=== PATIENT | male | born 1955 | race African-American/Black ===

== ENCOUNTER 2018-03-30 10:02 | Inpatient (IN) | payer OTHER ==
[~2018-03-30] VITALS: Ht 172.7 cm; Wt 58.1 kg
[2018-03-30] MEDS ORDERED: SODIUM CHLORIDE 0.9% 1000ML BAG (SEPSIS BOLUS) IV ONE (11:15)
[2018-03-30] MEDS ORDERED: LEVOFLOXACIN 750MG PREMIX 150 ML IV ONE (11:15)
[2018-03-30 12:07] LABS: HEMATOCRIT. 36.8 % (42.0-52.0); HEMOGLOBIN. 12.1 g/dL (14.0-18.0); MEAN CORPUSCULAR HEMOGLOBIN 23.6 pg (28.0-32.0); MEAN PLATELET VOLUME 9.8 fl (7.4-10.4); PLATELET 201 x1000/uL (130-400); RED BLOOD CELL COUNT 5.11 mill/uL (4.7-6.1); RED CELL DISTRIBUTION WIDTH 14.1 % (11.6-14.6)
[2018-03-30 12:13] LABS: CHLORIDE 100 mEq/L (98-107)
[2018-03-30 12:18] LABS: INR 0.9; PROTHROMBIN TIME 9.5 sec (9.1-11.1)
[2018-03-30 13:19] LABS: PLATELET ESTIMATE NORMAL
[2018-03-30] MEDS ORDERED: SODIUM CHLORIDE 0.9% 1,000 ML IV SCH (13:39)
[2018-03-30] MEDS ORDERED: ZOLPIDEM TARTRATE 5MG TABLET PO PRN (13:45)
[2018-03-30] MEDS ORDERED: GUAIFENESIN 200MG/10ML SUGAR FREE UDC PO PRN (13:45)
[2018-03-30] MEDS ORDERED: ACETAMINOPHEN 325MG TABLET PO PRN (13:45)
[2018-03-30] MEDS ORDERED: NITROGLYCERIN 0.4MG TABLET SL SL PRN (13:45)
[2018-03-30] MEDS ORDERED: KETOROLAC 15MG/ML VIAL IV PRN (13:45)
[2018-03-30] MEDS ORDERED: DOCUSATE SODIUM 100MG CAPSULE PO PRN (13:45)
[2018-03-30] MEDS ORDERED: IPRATROPIUM/ALBUTEROL 0.5-3(2.5)MG/3ML NEB INH PRN (13:45)
[2018-03-30] MEDS ORDERED: ONDANSETRON HCL 4MG/2ML INJ IV PRN (13:45)
[2018-03-30] MEDS ORDERED: CLONIDINE 0.1MG TABLET PO PRN (13:45)
[2018-03-30] MEDS ORDERED: MAGNESIUM/ALUMINUM HYDROXIDE/SIMETHICONE 30ML UDC PO PRN (13:45)
[2018-03-30 13:46] LABS: CLARITY URINE CLOUDY (CLEAR); COLOR URINE YELLOW (YELLOW); KETONES URINE NEGATIVE (NEGATIVE); LEUKOCYTE ESTERASE URINE TRACE (NEGATIVE); NITRITE URINE NEGATIVE (NEGATIVE); OCCULT BLOOD URINE NEGATIVE (NEGATIVE); PROTEIN URINE 1+ (NEGATIVE); SPECIFIC GRAVITY URINE 1.012 (1.005-1.030); UROBILINOGEN URINE 0.2 E.U./dL (0.2-1.0)
[2018-03-30 15:47] LABS: ETHANOL BLOOD < 10 mg/dL
[2018-03-30 15:49] LABS: LDL CHOLESTEROL 92 mg/dL (5-100)
[2018-03-30 15:50] LABS: TOTAL IRON BINDING CAPACITY 141 ug/dL (250-450)
[2018-03-30 15:51] LABS: HDL CHOLESTEROL 15 mg/dL (40-59)
[2018-03-30] MEDS ORDERED: ENOXAPARIN 40MG/0.4ML SYR SUBCUT SCH (17:00)
[2018-03-30 17:25] VITALS: BP 151/79
[2018-03-30 17:43] VITALS: BP 151/79
[2018-03-30] MEDS ORDERED: TAMS0.4C31 MT (17:47)
[2018-03-30] MEDS ORDERED: CEPH500C2 MT (17:47)
[2018-03-30] MEDS ORDERED: TAMSULOSIN HCL 0.4MG SR CAPSULE PO NR (19:45)
[2018-03-30 20:00] VITALS: BP 155/77
[2018-03-30] MEDS: DUTASTERIDE 0.5MG CAPSULE PO SCH (20:38)
[2018-03-30] MEDS: FAMOTIDINE 20MG TABLET PO SCH (20:38)
[2018-03-30] MEDS: SODIUM CHLORIDE 0.9% 1,000 ML IV SCH (20:39)
[2018-03-30] MEDS: ENOXAPARIN 40MG/0.4ML SYR SUBCUT SCH (20:39)
[2018-03-30 21:14] LABS: CREATINE KINASE 63 IU/L (39-308)
[2018-03-30 21:15] LABS: CREATINE KINASE MB FRACTION < 1.0 ng/mL (0.5-3.6)
[2018-03-31] VITALS: BP 125/72
[2018-03-31 04:00] VITALS: BP 132/70
[2018-03-31 08:00] VITALS: BP 140/74
[2018-03-31] MEDS: CEFTRIAXONE 1 G PREMIX 50 ML IV SCH (09:18)
[2018-03-31] MEDS: DUTASTERIDE 0.5MG CAPSULE PO SCH (09:18)
[2018-03-31] MEDS: TAMSULOSIN HCL 0.4MG SR CAPSULE PO SCH ×2 (09:19→18:33)
[2018-03-31] MEDS: ASPIRIN 325MG EC TABLET PO SCH (09:19)
[2018-03-31] MEDS: FAMOTIDINE 20MG TABLET PO SCH (09:19)
[2018-03-31] MEDS: SODIUM CHLORIDE 0.9% 1,000 ML IV SCH (09:29)
[2018-03-31 09:55] LABS: CREATINE KINASE 46 IU/L (39-308)
[2018-03-31 09:56] LABS: CREATINE KINASE MB FRACTION < 1.0 ng/mL (0.5-3.6)
[2018-03-31 12:00] VITALS: BP 130/79
[2018-03-31] MEDS ORDERED: LEVOFLOXACIN 250MG PREMIX 50 ML IV SCH (12:00)
[2018-03-31 16:00] VITALS: BP 130/79
[2018-03-31 20:00] VITALS: BP 150/77
[2018-03-31 20:26] LABS: HEMATOCRIT. 33.9 % (42.0-52.0); HEMOGLOBIN. 11.1 g/dL (14.0-18.0); MEAN CORPUSCULAR HEMOGLOBIN 23.6 pg (28.0-32.0); MEAN CORPUSCULAR VOLUME 72.2 fL (80.0-94.0); MEAN PLATELET VOLUME 10.4 fl (7.4-10.4); PLATELET 209 x1000/uL (130-400); RED BLOOD CELL COUNT 4.69 mill/uL (4.7-6.1); RED CELL DISTRIBUTION WIDTH 13.8 % (11.6-14.6)
[2018-03-31 20:49] LABS: CHLORIDE 112 mEq/L (98-107)
[2018-03-31] MEDS: ENOXAPARIN 40MG/0.4ML SYR SUBCUT SCH (21:10)
[2018-03-31 21:31] LABS: PLATELET ESTIMATE NORMAL
[2018-04-01] VITALS: BP 150/75
[2018-04-01] MEDS: SODIUM CHLORIDE 0.9% 1,000 ML IV SCH ×2 (00:10→13:05)
[2018-04-01 04:00] VITALS: BP 142/73
[2018-04-01 08:00] VITALS: BP 147/71
[2018-04-01] MEDS: DUTASTERIDE 0.5MG CAPSULE PO SCH (09:25)
[2018-04-01] MEDS: FAMOTIDINE 20MG TABLET PO SCH (09:25)
[2018-04-01] MEDS: CEFTRIAXONE 1 G PREMIX 50 ML IV SCH (09:25)
[2018-04-01] MEDS: ASPIRIN 325MG EC TABLET PO SCH (09:25)
[2018-04-01] MEDS: TAMSULOSIN HCL 0.4MG SR CAPSULE PO SCH ×2 (09:26→17:18)
[2018-04-01 12:00] VITALS: BP 149/65
[2018-04-01] MEDS ORDERED: LEVOFLOXACIN 250MG PREMIX 50 ML IV SCH (14:00)
[2018-04-01 16:00] VITALS: BP 161/70
[2018-04-01 17:56] LABS: CHLORIDE 114 mEq/L (98-107)
[2018-04-01 20:00] VITALS: BP 137/68
[2018-04-01] MEDS: ENOXAPARIN 40MG/0.4ML SYR SUBCUT SCH (20:05)
[2018-04-02] VITALS: BP 145/67
[2018-04-02] MEDS: SODIUM CHLORIDE 0.9% 1,000 ML IV SCH (00:42)
[2018-04-02 04:00] VITALS: BP 109/56
[2018-04-02 08:00] VITALS: BP 129/62
[2018-04-02] MEDS ORDERED: CEFTRIAXONE 1 G PREMIX 50 ML IV SCH (09:00)
[2018-04-02] MEDS: TAMSULOSIN HCL 0.4MG SR CAPSULE PO SCH (09:26)
[2018-04-02] MEDS: DUTASTERIDE 0.5MG CAPSULE PO SCH (09:26)
[2018-04-02] MEDS: FAMOTIDINE 20MG TABLET PO SCH (09:27)
[2018-04-02] MEDS: ASPIRIN 325MG EC TABLET PO SCH (09:27)
[2018-04-02 12:00] VITALS: BP 132/72
[2018-04-02 13:40] VITALS: BP 132/72
[2018-04-02 23:07] LABS: FOLIC ACID (FOLATE) SERUM 19.2 ng/mL (>5.38)
== END 2018-04-02 15:35 | disposition home or self-care (01) | DRG 871 ==
LOC: ER 10:14 → 7WST 13:31 → EDBEDREQSVC 13:33 → EDBEDREQTM 13:33 → EDBEDREQ 13:33 → ENRESERV 15:53
PROVIDERS: ADMIT Internal Medicine; ATTEND Internal Medicine
DX: A41.50 Gram-negative sepsis, unspecified (principal); N17.0 Acute kidney failure with tubular necrosis; E44.1 Mild protein-calorie malnutrition; E87.0 Hyperosmolality and hypernatremia; N39.0 Urinary tract infection, site not specified; Z68.1 Body mass index [BMI] 19.9 or less, adult; D64.9 Anemia, unspecified; E78.00 Pure hypercholesterolemia, unspecified; F17.210 Nicotine dependence, cigarettes, uncomplicated; I10 Essential (primary) hypertension; J44.9 Chronic obstructive pulmonary disease, unspecified; N40.0 Benign prostatic hyperplasia without lower urinary tract symptoms; Z87.440 Personal history of urinary (tract) infections
CPT/HCPCS: 36415; 71045; 80048; 80061; 82550; 82553; 82607; 82746; 83036; 83540; 83550; 83605; 84145; 84484; 87077; 87186; 93005; 93970; 96365; 96366; 99285; G0482; J0696; J1650; J1956; J7030

== ENCOUNTER 2018-07-23 13:42 | Emergency (ER) | payer OTHER ==
[~2018-07-23] VITALS: Ht 175.3 cm; Wt 74.0 kg
[~2018-07-23 13:42] MED LIST: CEPH500C2 MT; TAMS0.4C31 MT
[2018-07-23] MEDS ORDERED: SODIUM CHLORIDE 0.9% 1,000 ML IV ONE (15:11)
[2018-07-23] MEDS ORDERED: ONDANSETRON HCL 4MG/2ML INJ IV STA (15:11)
[2018-07-23 15:26] LABS: EOSINOPHILS % 0.3 % (0.0-5.0); HEMATOCRIT. 36.1 % (42.0-52.0); HEMOGLOBIN. 11.8 g/dL (14.0-18.0); LYMPHOCYTES % 21.8 % (20.0-50.0); MEAN CORPUSCULAR HEMOGLOBIN 23.1 pg (28.0-32.0); MEAN CORPUSCULAR VOLUME 70.7 fL (80.0-94.0); MEAN PLATELET VOLUME 9.4 fl (7.4-10.4); MONOCYTES % 7.5 % (2.0-8.0); NEUTROPHILS % 69.4 % (40.0-76.0); PLATELET 185 x1000/uL (130-400); RED BLOOD CELL COUNT 5.11 mill/uL (4.7-6.1); RED CELL DISTRIBUTION WIDTH 18.3 % (11.6-14.6)
[2018-07-23 15:31] LABS: CHLORIDE 92 mEq/L (98-107)
[2018-07-23 17:14] LABS: CLARITY URINE CLEAR (CLEAR); COLOR URINE YELLOW (YELLOW); KETONES URINE 1+ (NEGATIVE); LEUKOCYTE ESTERASE URINE NEGATIVE (NEGATIVE); NITRITE URINE NEGATIVE (NEGATIVE); OCCULT BLOOD URINE NEGATIVE (NEGATIVE); PH URINE 5.5 (4.5-8.0); PROTEIN URINE TRACE (NEGATIVE); SPECIFIC GRAVITY URINE 1.019 (1.005-1.030)
[2018-07-23 18:09] VITALS: BP 162/85
== END 2018-07-23 18:11 | disposition home or self-care (01) ==
LOC: ER 13:42
DX: R42 Dizziness and giddiness (principal); E86.0 Dehydration; R55 Syncope and collapse; I10 Essential (primary) hypertension; F17.200 Nicotine dependence, unspecified, uncomplicated
CPT/HCPCS: 36415; 71045; 80053; 81003; 83690; 85025; 93005; 96361; 96374; 99284; J2405; J7030

== ENCOUNTER 2018-10-28 19:21 | Inpatient (IN) | payer OTHER ==
[~2018-10-28] VITALS: Ht 172.7 cm; Wt 61.7 kg
[2018-10-28] MEDS ORDERED: SODIUM CHLORIDE 0.9% 1,000 ML IV ONE (21:04)
[2018-10-28] MEDS ORDERED: ONDANSETRON HCL 4MG/2ML INJ IV STA (21:04)
[2018-10-28 21:25] LABS: BASOPHILS % 1.3 % (0.0-2.0); EOSINOPHILS % 0.2 % (0.0-5.0); HEMATOCRIT. 32.7 % (42.0-52.0); HEMOGLOBIN. 10.9 g/dL (14.0-18.0); LYMPHOCYTES % 21.5 % (20.0-50.0); MEAN CORPUSCULAR HEMOGLOBIN 24.5 pg (28.0-32.0); MEAN CORPUSCULAR VOLUME 73.6 fL (80.0-94.0); MEAN PLATELET VOLUME 8.5 fl (7.4-10.4); MONOCYTES % 6.3 % (2.0-8.0); NEUTROPHILS % 70.7 % (40.0-76.0); PLATELET 236 x1000/uL (130-400); RED BLOOD CELL COUNT 4.45 mill/uL (4.7-6.1); RED CELL DISTRIBUTION WIDTH 15.8 % (11.6-14.6)
[2018-10-28 21:30] LABS: CHLORIDE 96 mEq/L (98-107)
[2018-10-28 21:34] LABS: ETHANOL BLOOD < 10 mg/dL
[2018-10-28] MEDS ORDERED: ATOR20TA65 PO (21:36)
[2018-10-28] MEDS ORDERED: CHLO25TA2 PO (21:36)
[2018-10-28 22:44] LABS: *AMPHETAMINES SCREEN URINE NEGATIVE (NEGATIVE); *BARBITURATES SCREEN URINE NEGATIVE (NEGATIVE)
[2018-10-28 22:45] LABS: *BENZODIAZEPINES SCREEN URINE NEGATIVE (NEGATIVE); *COCAINE SCREEN URINE NEGATIVE (NEGATIVE); CANNABINOID URINE SCREEN NEGATIVE (NEGATIVE); METHADONE URINE SCREEN NEGATIVE (NEGATIVE); OPIATES URINE SCREEN NEGATIVE (NEGATIVE); PHENCYCLIDINE URINE SCREEN NEGATIVE (NEGATIVE)
[2018-10-28] MEDS ORDERED: ASPIRIN 325MG EC TABLET PO ONE (23:00)
[2018-10-29] VITALS (7 sets, daily range): BP systolic 116–164; BP diastolic 60–73
[2018-10-29] MEDS: ONDANSETRON HCL 4MG/2ML INJ IV PRN ×2 (01:59→06:13)
[2018-10-29] MEDS: CHLORDIAZEPOXIDE 25MG CAPSULE PO SCH ×3 (01:59→13:23)
[2018-10-29] MEDS: SODIUM CHLORIDE 0.9% 1,000 ML IV SCH ×2 (02:00→13:23)
[2018-10-29] MEDS: TAMSULOSIN HCL 0.4MG SR CAPSULE PO SCH ×2 (02:00→08:54)
[2018-10-29] MEDS ORDERED: PANTOPRAZOLE 40MG DR TABLET PO SCH (06:45)
[2018-10-29 06:49] LABS: BASOPHILS % 1.6 % (0.0-2.0); EOSINOPHILS % 0.5 % (0.0-5.0); HEMATOCRIT. 30.1 % (42.0-52.0); LYMPHOCYTES % 36.3 % (20.0-50.0); MEAN CORPUSCULAR HEMOGLOBIN 24.7 pg (28.0-32.0); MEAN CORPUSCULAR VOLUME 74.5 fL (80.0-94.0); NEUTROPHILS % 51.6 % (40.0-76.0); PLATELET 202 x1000/uL (130-400); RED BLOOD CELL COUNT 4.03 mill/uL (4.7-6.1); RED CELL DISTRIBUTION WIDTH 16.1 % (11.6-14.6)
[2018-10-29 07:05] LABS: CHLORIDE 100 mEq/L (98-107)
[2018-10-29] MEDS ORDERED: CHLORTHALIDONE 25MG TABLET PO SCH (09:00)
[2018-10-29 10:34] LABS: CLARITY URINE CLEAR (CLEAR); COLOR URINE DARK YELLOW (YELLOW); KETONES URINE 1+ (NEGATIVE); LEUKOCYTE ESTERASE URINE NEGATIVE (NEGATIVE); NITRITE URINE NEGATIVE (NEGATIVE); OCCULT BLOOD URINE NEGATIVE (NEGATIVE); PROTEIN URINE 1+ (NEGATIVE); SPECIFIC GRAVITY URINE 1.023 (1.005-1.030)
[2018-10-29] MEDS ORDERED: DILTIAZEM HCL 30MG TABLET PO SCH (14:00)
[2018-10-29] MEDS ORDERED: ATORVASTATIN CALCIUM 20MG TABLET PO SCH (21:00)
== END 2018-10-29 21:25 | disposition left against medical advice (07) | DRG 948 ==
LOC: ER 19:21 → 5WST 23:05 → ENRESERV 23:15
PROVIDERS: ADMIT Family Medicine; ATTEND Family Medicine
DX: R53.1 Weakness (principal); R18.8 Other ascites; R11.10 Vomiting, unspecified; F10.10 Alcohol abuse, uncomplicated; E78.00 Pure hypercholesterolemia, unspecified; E78.5 Hyperlipidemia, unspecified; F17.210 Nicotine dependence, cigarettes, uncomplicated; I10 Essential (primary) hypertension; J44.9 Chronic obstructive pulmonary disease, unspecified; N40.0 Benign prostatic hyperplasia without lower urinary tract symptoms; K76.89 Other specified diseases of liver; R07.89 Other chest pain
CPT/HCPCS: 36415; 71045; 80048; 80305; 80320; 83880; 84484; 93005; 93306; 96374; 99285; J2405; J7030; G0480

== ENCOUNTER 2019-01-29 04:45 | Emergency (ER) | payer OTHER ==
[~2019-01-29] VITALS: Ht 175.3 cm; Wt 77.0 kg
[~2019-01-29 04:45] MED LIST changes: +ATOR20TA65 PO; -CEPH500C2 MT; +CHLO25TA2 PO
[2019-01-29] MEDS ORDERED: ONDANSETRON HCL 4MG/2ML INJ IV STA (09:15)
[2019-01-29] MEDS ORDERED: SODIUM CHLORIDE 0.9% 1,000 ML IV ONE (09:15)
[2019-01-29 09:47] LABS: BASOPHILS % 1.7 % (0.0-2.0); EOSINOPHILS % 0.8 % (0.0-5.0); HEMATOCRIT. 34.6 % (42.0-52.0); HEMOGLOBIN. 11.3 g/dL (14.0-18.0); LYMPHOCYTES % 26.3 % (20.0-50.0); MEAN CORPUSCULAR HEMOGLOBIN 24.2 pg (28.0-32.0); MEAN PLATELET VOLUME 9.7 fl (7.4-10.4); MONOCYTES % 5.5 % (2.0-8.0); NEUTROPHILS % 65.7 % (40.0-76.0); PLATELET 225 x1000/uL (130-400); RED BLOOD CELL COUNT 4.68 mill/uL (4.7-6.1); RED CELL DISTRIBUTION WIDTH 18.8 % (11.6-14.6)
[2019-01-29 09:52] LABS: CHLORIDE 103 mEq/L (98-107)
[2019-01-29 09:56] LABS: ETHANOL BLOOD < 10 mg/dL
[2019-01-29 10:46] VITALS: BP 144/74
== END 2019-01-29 10:48 | disposition home or self-care (01) ==
LOC: ER 04:45
DX: R42 Dizziness and giddiness (principal); I10 Essential (primary) hypertension; E78.00 Pure hypercholesterolemia, unspecified; N40.0 Benign prostatic hyperplasia without lower urinary tract symptoms; F10.21 Alcohol dependence, in remission
CPT/HCPCS: 36415; 80053; 80320; 85025; 96361; 96374; 99283; J2405; J7030; G0480

== ENCOUNTER 2019-04-07 17:25 | Emergency (ER) | payer OTHER ==
[~2019-04-07] VITALS: Ht 172.7 cm; Wt 62.0 kg
[2019-04-07 17:39] VITALS: BP 161/94
[2019-04-07] MEDS ORDERED: VISCOUS LIDOCAINE 2% 15 ML UDC PO STA (18:34)
[2019-04-07] MEDS ORDERED: MAGNESIUM/ALUMINUM HYDROXIDE/SIMETHICONE 30ML UDC PO STA (18:34)
[2019-04-07] MEDS ORDERED: ONDANSETRON 4MG ODT PO STA (18:34)
[2019-04-07] MEDS ORDERED: DICYCLOMINE 10 MG/5 ML ORAL SYR PO STA (18:34)
== END 2019-04-07 19:15 | disposition home or self-care (01) ==
LOC: ER 17:25
DX: K21.9 Gastro-esophageal reflux disease without esophagitis (principal); I10 Essential (primary) hypertension; E78.00 Pure hypercholesterolemia, unspecified; F17.200 Nicotine dependence, unspecified, uncomplicated; Z71.6 Tobacco abuse counseling
CPT/HCPCS: 71045; 93005; 99284; 99406; Q0162